=== PATIENT | male | born 2005 | race Caucasian/White ===

== ENCOUNTER 2023-01-19 21:57 | Emergency (ER) | payer SELFPAY ==
[~2023-01-19] VITALS: Ht 172 cm; Wt 69.0 kg
[2023-01-19 22:08] VITALS: BP 116/77
--- NOTE | 2023-01-19 22:22 | ED Psychosocial ---
General Chief Complaint: Psych/Social Disorder Stated Complaint: SUICIDAL IDEATION Nursing Triage Note: PATIENT STATES HE CALLED PD TO BRING HIM TO ED FOR SI THOUGHTS. PATIENT STATES HESTOPPED METH APPROX 5MO AGO, STATES STARTED HAVING LUCID DREAMS AND WAVES OF SUICIDAL THOUGHTS. VERBALIZED TODAY IF LEFT ALONE HE WOULD "SLIT MY OWN THROAT" PATIENT STATES HAS SELF HARMED IN THE PAST. PATIENT HAS NOT TAKEN ZYPREXA, DEPKOTE, OR MELATONIN FOR LAST TWO MO DUE TO LOST MEDS. Source: patient (SOMEWHAT DIFFICULT HISTORIAN) History of Present Illness Date Seen by Provider: Jan 19, 2023 Time Seen by Provider: 22:20 Initial Comments PT ARRIVES VIA [place] [facility]--PT CALLED POLICE TO BRING HIM HERE C/O SUICIDAL IDEATIONS X 1 WEEK THIS IS CHRONIC PROBLEM AND NO DIFFERENT MOI IN ANY WAY HAS NOT SOUGHT CARE UNTIL TONIGHT PT STATES HE WAS GOING TO "SLIT HIS OWN THROAT"--HE HAS NOT ACTUALLY ATTEMPTED TO HARM HIMSELF RECENTLY, BUT HAS IN THE PAST PT HAS HAD MULTIPLE PSYCH ADMITS, LAST ONE WAS ABOUT A MONTH AGO AT [facility] IN [place] PT STATES HE HAS NOT FOLLOWED UP WITH ANYONE SINCE THEN, AND NEVER FOLLOWS UP WITH ANYONE OUTPATIENT FOR MENTAL HEALTH. PT STATES "NEVER WENT FOR OPTION OF SAFETY PLAN" AND STATES HE "ALWAYS GETS ADMITTED" LATER STATES HE WOULD LIKE OPTION OF SAFETY PLAN. HE STATES HE HAS BEEN PRESCRIBED ZYPREXA, BUT HAS NOT HAD ANY FOR AT LEAST 2 MONTHS--GIVES CONVOLUTED STORY ABOUT "EX-GIRLFRIEND" HAD THEM THEN SHE WENT TO [facility]..... STATES HE HAS BEEN DX WITH PTSD, "BIPOLAR 1 AND 2", SCHIZOPHRENIA, ANXIETY, DEPRESSION, ADHD PT STATES HE "JUST MOVED HERE TO [place]" FROM [place] 1 1/2 WEEKS AGO--IS STAYING WITH A FRIEND HERE. HE WAS STAYING WITH DIFFERENT FRIENDS/FAMILY WHEN HE WAS IN [place] PT STATES HE SMOKES 1/2 PPD, HE STATES THAT HE NORMALLY DRINKS A "FIFTH OF HARD LIQUOR" EVERY DAY, BUT FOR THE LAST 1 1/2 WEEKS, HE HAS ONLY BEEN DRINKING 2-3 DRINKS A DAY. HE ALSO ADMITS TO DAILY METHAMPHETAMINE AND MARIJUANA USE. STATES HE SMOKES METH, DENIES IV USE CLAIMS NO METH USE X 5 MONTHS Allergies and Home Medications Allergies Coded Allergies: No Known Drug Allergies (Unverified , 01/19/23) Patient Home Medication List Home Medication List Reviewed: Yes Review of Systems Constitutional: no symptoms reported Respiratory: no symptoms reported Cardiovascular: no symptoms reported Gastrointestinal: no symptoms reported Genitourinary: no symptoms reported Musculoskeletal: no symptoms reported Skin: no symptoms reported Psychiatric/Neurological: See HPI Past Zckeqgo-Zbpqwo-Wnseei Hx Patient Social History Tobacco Use?: Yes Tobacco type used: Cigarettes Smoking Status: Current Everyday Smoker Substance use?: Yes Substance type: Methamphetamine, Marijuana Alcohol Use?: Yes Alcohol type: Hard Liquor Alcohol Frequency: Daily Past Medical History Surgeries: No Respiratory: No Cardiac: No Neurological: No Genitourinary: No Gastrointestinal: No Musculoskeletal: No Endocrine: No HEENT: No Cancer: No Psychosocial: Yes (POLYSUBSTANCE ABUSE; MULTIPLE PSYCH ADMITS) ADD/ADHD, Anxiety, Suicide Attempts, Bipolar, Schizophrenia, Depression Family Medical History SOCIAL HISTORY: -SMOKES 1/2 PPD -ETOH--UP TO A FIFTH OF HARD LIQUOR/DAY -DRUGS--SMOKES METHAMPHETAMINES AND MARIJUANA ON REGULAR BASIS, DENIES IV USE Physical Exam Vital Signs - First Documented 01/19/23 22:08 Temp 37.0 Pulse 91 Resp 24 B/P (MAP) 116/77 (90) Pulse Ox 97 O2 Delivery Room Air Capillary Refill : Less Than 3 Seconds Height, Weight, BMI Height: '" Weight: lbs. oz. kg; 23.00 BMI Method: General Appearance: WD/WN, other (UNKEMPT, MALODOROUS, HAIR DYED BLUE. 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, no motor/sensory deficits, alert, oriented x 3 Appearance/Memory: no memory impairment, disheveled Behavior/Eye Contact: cooperative, good eye contact, increased rate of speech Thoughts/Hallucinations: no apparent hallucination Skin: normal color, warm/dry, other (NO EVIDENCE OF SELF-HARM) Progress/Results/Core Measures Results/Orders Lab Results Laboratory Tests Test 01/19/23 22:09 01/19/23 22:22 01/19/23 23:17 Range/Units White Blood Count 14.2 H 4.3-11.0 10^3/uL Red Blood Count 5.62 H 4.30-5.52 10^6/uL Hemoglobin 16.7 13.3-17.7 g/dL Hematocrit 50 40-54 % Mean Corpuscular Volume 89 80-99 fL Mean Corpuscular Hemoglobin 30 25-34 pg Mean Corpuscular Hemoglobin Concent 34 32-36 g/dL Red Cell Distribution Width 12.9 10.0-14.5 % Platelet Count 333 130-400 10^3/uL Mean Platelet Volume 9.4 9.0-12.2 fL Immature Granulocyte % (Auto) 0 % Neutrophils (%) (Auto) 78 H 42-75 % Lymphocytes (%) (Auto) 13 12-44 % Monocytes (%) (Auto) 7 0-12 % Eosinophils (%) (Auto) 1 0-10 % Basophils (%) (Auto) 1 0-10 % Neutrophils # (Auto) 11.1 H 1.8-7.8 10^3/uL Lymphocytes # (Auto) 1.8 1.0-4.0 10^3/uL Monocytes # (Auto) 1.1 H 0.0-1.0 10^3/uL Eosinophils # (Auto) 0.2 0.0-0.3 10^3/uL Basophils # (Auto) 0.1 0.0-0.1 10^3/uL Immature Granulocyte # (Auto) 0.1 0.0-0.1 10^3/uL Neutrophils % (Manual) 75 % Lymphocytes % (Manual) 11 % Monocytes % (Manual) 11 % Eosinophils % (Manual) 3 % Platelet Estimate ADEQUATE Blood Morphology Comment NORMAL Sodium Level 141 135-145 MMOL/L Potassium Level 3.9 3.6-5.0 MMOL/L Chloride Level 104 98-107 MMOL/L Carbon Dioxide Level 24 21-32 MMOL/L Anion Gap 13 5-14 MMOL/L Blood Urea Nitrogen 12 7-18 MG/DL Creatinine 0.84 0.60-1.30 MG/DL Estimat Glomerular Filtration Rate 129 BUN/Creatinine Ratio 14 Glucose Level 96 70-105 MG/DL Calcium Level 9.8 8.5-10.1 MG/DL Corrected Calcium 8.5-10.1 MG/DL Total Bilirubin 1.1 H 0.1-1.0 MG/DL Aspartate Amino Transf (AST/SGOT) 25 5-34 U/L Alanine Aminotransferase (ALT/SGPT) 23 0-55 U/L Alkaline Phosphatase 84 40-136 U/L Total Protein 8.4 H 6.4-8.2 GM/DL Albumin 4.9 H 3.2-4.5 GM/DL Salicylates Level < 5.0 L 5.0-20.0 MG/DL Acetaminophen Level < 10 L 10-30 UG/ML Serum Alcohol < 10 <10 MG/DL SARS-CoV-2 RNA (RT-PCR) Not Detected Not Detecte Urine Color YELLOW Urine Clarity CLEAR Urine pH 6.0 5-9 Urine Specific [place] 1.025 H 1.016-1.022 Urine Protein TRACE NEGATIVE Urine Glucose (UA) NEGATIVE NEGATIVE Urine Ketones TRACE H NEGATIVE Urine Nitrite NEGATIVE NEGATIVE Urine Bilirubin 1+ H NEGATIVE Urine Urobilinogen 2.0 < = 1.0 MG/DL Urine Leukocyte Esterase NEGATIVE NEGATIVE Urine RBC (Auto) NEGATIVE NEGATIVE Urine RBC NONE /HPF Urine WBC 0-2 /HPF Urine Crystals NONE /LPF Urine Bacteria NEGATIVE /HPF Urine Casts NONE /LPF Urine Mucus LARGE H /LPF Urine Culture Indicated NO Urine Opiates Screen NEGATIVE NEGATIVE Urine Oxycodone Screen NEGATIVE NEGATIVE Urine Methadone Screen NEGATIVE NEGATIVE Urine Propoxyphene Screen NEGATIVE NEGATIVE Urine Barbiturates Screen NEGATIVE NEGATIVE Ur Tricyclic Antidepressants Screen NEGATIVE NEGATIVE Urine Phencyclidine Screen NEGATIVE NEGATIVE Urine Amphetamines Screen NEGATIVE NEGATIVE Urine Methamphetamines Screen NEGATIVE NEGATIVE Urine Benzodiazepines Screen NEGATIVE NEGATIVE Urine Cocaine Screen NEGATIVE NEGATIVE Urine Cannabinoids Screen POSITIVE H NEGATIVE My Orders Orders - BC MAYBERRY DO Ekg Tracing (01/19/23 22:13) Acetaminophen (01/19/23 22:19) Alcohol (01/19/23 22:19) Cbc And Automated Diff (01/19/23 22:19) Comprehensive Metabolic Panel (01/19/23 22:19) Drug Screen Stat (Urine) (01/19/23 22:19) Salicylate (01/19/23 22:19) Ua Culture If Indicated (01/19/23 22:19) Covid 19 Inhouse Test (01/19/23 22:19) Manual Differential (01/19/23 22:09) Vital Signs/I&O 01/19/23 22:08 Temp 37.0 Pulse 91 Resp 24 B/P (MAP) 116/77 (90) Pulse Ox 97 O2 Delivery Room Air Blood Pressure Mean: 90 Progress Progress Note : Progress Note PLACED IN SECURE ROOM, AND PT PLACED IN GOWN SUICIDE RISK STRATIFICATION PAPERWORK COMPLETED VITALS ON ARRIVAL" TEMP 37.0=98.6, HR 91, RR 24, BP 116/77, O2 SAT 97% ON ROOM AIR LABS: -CBC WBC 14.2, OTHERWISE NORMAL -CMP NORMAL -ETOH NEGATIVE -SALICYLATES NEGATIVE -ACETAMINOPHEN NEGATIVE -COVID NEGATIVE. -UA UNREMARKABLE -UDS + FOR THC EKG UNREMARKABLE 2321--PT NOW STATES HE IS TIRED OF WAITING AND IS WANTING TO LEAVE, AND NO LONGER WANTS A PSYCH EVALUATION. PT STATES HE IS NO LONGER SUICIDAL AND IS GOING TO GO TO THERAPY IN THE MORNING. ( NOT ALL TESTS ARE BACK AT THIS TIME ) AMA PAPERS SIGNED. PT ADVISED OF RISKS/BENEFITS NO PRIOR VISITS HERE. Initial ECG Impression Date: Jan 19, 2023 Initial ECG Impression Time: 22:16 Initial ECG Rate: 83 Initial ECG Rhythm: Normal Sinus Initial ECG Intervals: Normal Initial ECG Impression: Normal Initial ECG Comparisson: No Previous ECG Available Comment INTERPRETED BY ME Departure Impression Primary Impression: Left against medical advice Disposition: 07 AGAINST MEDICAL ADVICE Condition: Against Medical Advice Departure-Patient Inst. Referrals: NO,LOCAL PHYSICIAN (PCP/Family) Primary Care Physician BC MAYBERRY DO Jan 19, 2023 22:22
[2023-01-19 22:26] LABS: BASOPHILS # (AUTO) 0.1 10^3/uL (0.0-0.1); BASOPHILS % (AUTO) 1 % (0-10); EOSINOPHILS # (AUTO) 0.2 10^3/uL (0.0-0.3); EOSINOPHILS % (AUTO) 1 % (0-10); HEMATOCRIT 50 % (40-54); HEMOGLOBIN 16.7 g/dL (13.3-17.7); LYMPHOCYTES # (AUTO) 1.8 10^3/uL (1.0-4.0); LYMPHOCYTES % (AUTO) 13 % (12-44); MEAN CORPUSCULAR HEMOGLOBIN 30 pg (25-34); MEAN CORPUSCULAR HGB CONC 34 g/dL (32-36); MEAN CORPUSCULAR VOLUME 89 fL (80-99); MEAN PLATELET VOLUME 9.4 fL (9.0-12.2); MONOCYTES # (AUTO) 1.1 10^3/uL (0.0-1.0); MONOCYTES % (AUTO) 7 % (0-12); NEUTROPHILS # (AUTO) 11.1 10^3/uL (1.8-7.8); NEUTROPHILS % (AUTO) 78 % (42-75); PLATELET COUNT 333 10^3/uL (130-400); WHITE BLOOD COUNT 14.2 10^3/uL (4.3-11.0)
[2023-01-19 22:29] LABS: CHLORIDE 104 MMOL/L (98-107); POTASSIUM 3.9 MMOL/L (3.6-5.0); SODIUM 141 MMOL/L (135-145)
[2023-01-19 22:30] LABS: ALBUMIN 4.9 GM/DL (3.2-4.5)
[2023-01-19 22:31] LABS: CALCIUM 9.8 MG/DL (8.5-10.1)
[2023-01-19 22:32] LABS: GLUCOSE 96 MG/DL (70-105); TOTAL PROTEIN 8.4 GM/DL (6.4-8.2)
[2023-01-19 22:33] LABS: CARBON DIOXIDE 24 MMOL/L (21-32)
[2023-01-19 22:36] LABS: ALKALINE PHOSPHATASE 84 U/L (40-136); CREATININE SERUM 0.84 MG/DL (0.60-1.30); GFR ESTIMATED 129
[2023-01-19 22:37] LABS: BUN/CREATININE RATIO 14
[2023-01-19 22:38] LABS: SALICYLATE < 5.0 MG/DL (5.0-20.0)
[2023-01-19 22:39] LABS: ALANINE AMINOTRANSFERASE 23 U/L (0-55)
[2023-01-19 23:08] LABS: EOSINOPHILS % (MANUAL) 3 %; LYMPHOCYTES % (MANUAL) 11 %; MONOCYTES % (MANUAL) 11 %; NEUTROPHILS % (MANUAL) 75 %; PLATELET ESTIMATE ADEQUATE; RBC MORPH NORMAL
[2023-01-19 23:12] LABS: ACETAMINOPHEN < 10 UG/ML (10-30)
[2023-01-19 23:18] LABS: BILIRUBIN,TOTAL 1.1 MG/DL (0.1-1.0)
[2023-01-19 23:40] LABS: AMPHETAMINE SCREEN, URINE NEGATIVE (NEGATIVE); BARBITURATE SCREEN URINE NEGATIVE (NEGATIVE); CANNABINOID SCREEN, URINE POSITIVE (NEGATIVE); COCAINE SCREEN URINE NEGATIVE (NEGATIVE); METHADONE STAT NEGATIVE (NEGATIVE); OPIATE SCREEN URINE NEGATIVE (NEGATIVE); OXYCODONE STAT NEGATIVE (NEGATIVE); PROPOXYPHENE STAT NEGATIVE (NEGATIVE); TRICYCLIC ANTIDEPRESSANTS SCRE NEGATIVE (NEGATIVE)
[2023-01-19 23:41] LABS: CLARITY,URINE CLEAR; COLOR,URINE YELLOW; GLUCOSE, URINE (UA) NEGATIVE (NEGATIVE); KETONES,URINE TRACE (NEGATIVE); NITRITE,URINE NEGATIVE (NEGATIVE); PROTEIN,URINE TRACE (NEGATIVE)
[2023-01-19 23:42] LABS: BACTERIA,URINE NEGATIVE /HPF; BILIRUBIN,URINE 1+ (NEGATIVE); LEUKOCYTE ESTERASE ,URINE NEGATIVE (NEGATIVE); WBC,URINE 0-2 /HPF
== END 2023-01-19 23:36 | disposition left against medical advice (07) ==
LOC: ER 21:59
DX: R45.851 Suicidal ideations (principal); F17.210 Nicotine dependence, cigarettes, uncomplicated; Z20.822 Contact with and (suspected) exposure to COVID-19
CPT/HCPCS: 80053; 80306; 81000; 85007; 85027; 87636; 93005; 99284; G0480 ×3; 36415; 80320; 80329

== ENCOUNTER 2023-02-12 07:31 | Emergency (ER) | payer SELFPAY ==
[~2023-02-12] VITALS: Ht 180.3 cm; Wt 70.7 kg
[2023-02-12] MEDS ORDERED: Sulfamethoxazole/Trimethoprim DS TABLET PO ONE (07:45)
[2023-02-12] MEDS ORDERED: LIDOCAINE 1% INJ 10 ML VIAL INJ ONE (08:00)
[2023-02-12] MEDS ORDERED: LIDOCAINE 1% INJ 20 ML VIAL ONE (08:05)
[2023-02-12] MEDS ORDERED: LIDOCAINE 1% INJ 20 ML VIAL INJ ONE (08:15)
--- NOTE | 2023-02-12 08:19 | Diagnostic Imaging Report ---
FINGER(S) INDICATION: Pain and swelling of the right index finger COMPARISON: None available. TECHNIQUE: 3 views right index finger FINDINGS: Focal soft tissue nodular mass at the dorsal aspect of the distal long finger near the nailbed. No underlying osseous erosions. No associated osseous excrescence. Alignment long finger is normal. IMPRESSION: 1. No radiographic features of osteomyelitis. 2. Focal nodular swelling the dorsal aspect of the long finger has no associated soft tissue gas or radiopaque foreign body. Dictated by: Dictated on workstation # [id number]
--- NOTE | 2023-02-12 08:34 | ED Upper Extremity ---
General Chief Complaint: Upper Extremity Stated Complaint: RIGHT 4TH FINGER SWELLING Nursing Triage Note: PT AMB TO [facility] WITH COMPLAINT OF RIGHT MIDDLE FINGER SWELLING. STATES STARTED 3 NIGHTS AGO. Source: patient Exam Limitations: no limitations History of Present Illness Date Seen by Provider: Feb 12, 2023 Time Seen by Provider: 07:38 Allergies and Home Medications Allergies Coded Allergies: No Known Drug Allergies (Unverified , 01/19/23) Past Qdbdjxr-Jmvvzx-Sxwsid Hx Patient Social History Tobacco Use?: Yes Smoking Status: Current Everyday Smoker Use of E-Cig and/or Vaping dev: No Substance use?: Yes Substance type: Marijuana Alcohol Use?: Yes Alcohol Frequency: Once in a while Pt feels they are or have been: No Past Medical History Surgeries: No Respiratory: No Cardiac: No Neurological: No Genitourinary: No Gastrointestinal: No Musculoskeletal: No Endocrine: No HEENT: No Cancer: No Psychosocial: Yes (POLYSUBSTANCE ABUSE; MULTIPLE PSYCH ADMITS) ADD/ADHD, Anxiety, Suicide Attempts, Bipolar, Schizophrenia, Depression Family Medical History SOCIAL HISTORY: -SMOKES 1/2 PPD -ETOH--UP TO A FIFTH OF HARD LIQUOR/DAY -DRUGS--SMOKES METHAMPHETAMINES AND MARIJUANA ON REGULAR BASIS, DENIES IV USE Physical Exam Vital Signs Vital Signs - First Documented 02/12/23 07:36 Temp 36.8 Pulse 115 Resp 20 B/P (MAP) 119/76 (90) Pulse Ox 96 O2 Delivery Room Air Capillary Refill : Less Than 3 Seconds Height, Weight, BMI Height: '" Weight: lbs. oz. kg; 21.00 BMI Method: Progress/Results/Core Measures Results/Orders My Orders Orders - QUENTIN LYNN MD Sulfamethoxazole/Tmp Ds Tablet (Sulfamet (02/12/23 07:45) Wound Culture (02/12/23 07:44) Finger(S) (02/12/23 07:45) Lidocaine 1% Inj 10 Ml (Xylocaine 1% Inj (02/12/23 08:00) Lidocaine 1% Inj 20 Ml (Xylocaine 1% Inj (02/12/23 08:15) Lidocaine 1% Inj 20 Ml (Xylocaine 1% Inj (02/12/23 08:05) Medications Given in ED Current Medications Medications Dose Ordered Sig/Aries Route Start Time Stop Time Status Last Admin Dose Admin Lidocaine HCl 20 ml ONCE ONCE INJ 02/12/23 08:15 02/12/23 08:16 DC 02/12/23 08:07 20 ML Trimethoprim/ Sulfamethoxazole 2 ea ONCE ONCE PO 02/12/23 07:45 02/12/23 07:46 DC 02/12/23 08:07 2 EA Vital Signs/I&O 02/12/23 07:36 Temp 36.8 Pulse 115 Resp 20 B/P (MAP) 119/76 (90) Pulse Ox 96 O2 Delivery Room Air Blood Pressure Mean: 90 Departure Impression Primary Impression: Abscess of finger Qualified Codes: L02.511 - Cutaneous abscess of right hand Disposition: HOME, SELF-CARE Condition: Improved (ERASED) Departure-Patient Inst. Decision time for Depature: 08:42 Referrals: NO,LOCAL PHYSICIAN (PCP/Family) Primary Care Physician Patient Instructions: Skin Abscess, Abscess Incision and Drainage ED Add. Discharge Instructions: Keep your finger clean and dry except for normal handwashing with soap and water. Do not submerge in water for at least 10 days. Start taking your antibiotic this evening and complete the entire 10 days, even if you are feeling better. For pain you may take ibuprofen up to 600 mg every 6 hours as needed. Change the dressing daily or more often if needed. Keeping your finger elevated to the level of your heart will help reduce pain and swelling. A culture of your wound was collected in the ER. This culture will test which antibiotics will be most effective for your infection. You may follow-up on the culture results by contacting the ER Monday or later. Return to the emergency room if you have worsening symptoms, especially if you develop fevers or chills. All discharge instructions reviewed with patient and/or family. Voiced understanding. Scripts Sulfamethoxazole/Trimethoprim (Bactrim Ds Tablet) 1 Each Tablet 1 EACH PO BID, #20 TAB Prov: QUENTIN LYNN MD 02/12/23 QUENTIN LYNN MD Feb 12, 2023 08:34
[2023-02-12] MEDS ORDERED: SULF1TAB38 PO (08:44)
[2023-02-12 08:53] VITALS: BP 119/76
== END 2023-02-12 08:53 | disposition home or self-care (01) ==
LOC: EDUNIT# 07:31 → ER 07:32
DX: L02.511 Cutaneous abscess of right hand (principal); F17.210 Nicotine dependence, cigarettes, uncomplicated
CPT/HCPCS: 73140; 87070; 87077; 87186; 87205; 99284